=== PATIENT | female | born 1965 | race Caucasian/White ===

== ENCOUNTER 2020-07-29 18:32 | Emergency (ER) | payer BC, OTHER ==
[2020-07-29 20:06] LABS: HEMOGLOBIN 13.2 gm/dl (12.3-15.3); RED BLOOD COUNT 4.54 M/UL (4.00-5.10); WHITE BLOOD COUNT 6.5 K/UL (4.5-11.0)
[2020-07-29 20:28] LABS: BUN/CREATININE RATIO 15 (0-10)
[2020-07-29] MEDS ORDERED: LISINOPRIL10 MG PO (20:51)
== END 2020-07-29 21:02 | disposition home or self-care (01) ==
LOC: ER1 18:32
PROVIDERS: Student in an Organized Health Care Education/Training Program
DX: I10 Essential (primary) hypertension (principal); Z90.710 Acquired absence of both cervix and uterus; Z79.899 Other long term (current) drug therapy; Z79.1 Long term (current) use of non-steroidal anti-inflammatories (NSAID)
CPT/HCPCS: 80053; 82550; 82553; 83874; 84484; 85025; 93005; 99284